=== PATIENT | male | born 1960 | race Two or more races ===

== ENCOUNTER 2019-03-31 03:39 | Inpatient (IN) | payer MEDICARE, OTHER ==
[~2019-03-31] VITALS: Ht 172.7 cm; Wt 126.6 kg
[2019-03-31 05:25] VITALS: BP 198/133
[2019-03-31 07:10] VITALS: BP 152/92
[2019-03-31] MEDS ORDERED: ERGOCALCIFEROL (VITAMIN D2) 50,000 UNIT CAPSULE. PO SCH (09:00)
--- NOTE | 2019-03-31 09:26 | HP ---
ADMIT DATE: 03/31/2019 HISTORY OF PRESENT ILLNESS: The patient is a 58-year-old male patient who presented to the Emergency Room of [facility] with complaints of double vision, that side felt similar to what he has had when he has had previous TIA, started about 2 hours prior to arrival to the Emergency Room. He did complain of headache. He also complained that he feels that the periphery of his left eye vision that he has some form of what he describes as an oscillating, although he has hard time giving a precise description of what he sees there. He denied any tingling or numbness. Denied any localized weakness. Denied any nausea or vomiting. He stated that his symptoms got better when he stood up, but they seem to come back. Denied any fall or trauma. In fact, by the time I saw him in the [facility], his symptoms have largely subsided. He is known to have atrial fibrillation for which he is on Coumadin. He was evaluated in the Emergency Room and apparently by the time he was seen in the Emergency Room, his symptoms have subsided and therefore he has had CT scan of the head, which showed that the ventricular systems are prominent, but symmetric consistent with some generalized cerebral atrophy. No midline shift is seen. There is no evidence of intracranial hemorrhage. There is chronic infarct in the right occipital lobe. No acute infarct, mass or edema is seen. No abnormalities are seen at the orbits. The paranasal sinuses are clear and the right mastoid cells are clear. There is some chronic opacification of the left mastoid air cells, which may reflect some mastoiditis. His EKG showed that he has irregularly irregular rhythm consistent with atrial fibrillation and chest x-ray showed the heart size is normal, mediastinum is unremarkable. Lung garcia are clear. No acute bony abnormalities are seen. His lab work was essentially unremarkable. His prothrombin time was 25, INR of 2.4, which is well within therapeutic range and therefore, the patient was transferred to [facility] to consult the neurologist as well and order an MRI. PAST MEDICAL HISTORY: Significant for hypertension, hyperlipidemia, chronic kidney disease, type 2 diabetes mellitus, multiple cerebrovascular accidents. He is known to have benign prostatic hypertrophy and chronic venous stasis of both lower extremities as well as gout. PAST SURGICAL HISTORY: Significant for hernia repair. ALLERGIES: He has no known drug allergies. FAMILY HISTORY: He has 3 sisters, the older one has of end-stage renal disease in her 60s. The other two sisters include one younger and one older are seemingly healthy. His father in his 70s because of CVA and mother in her 70s. SOCIAL HISTORY: He is , has 2 daughters. He currently lives with 2 friends. He is an ex-smoker, quit 4 years ago. He used to smoke a pack a day and smoked for almost 30 years, who is also a heavy alcohol drinker described himself as functional alcoholic, quit also about 4 years ago after he had first TIA. He does not use any drugs. He used to work for [employer]. He was discharged from the [employer] after 6 years of service. REVIEW OF SYSTEMS: The patient denied any blurring of vision, but did complain of diplopia. He has no history of glaucoma or macular degeneration. Denied any earache, tinnitus or sensorineural deafness. Denied any nosebleeds, stuffy nose or postnasal drip. Denied any sore throat, sore tongue, toothache, hoarseness of voice or difficulty swallowing. Denied any nausea, vomiting, diarrhea or constipation. Denied any hematemesis, melena or hematochezia. Denied any dysuria, frequency or hematuria. Denied any chest pain, shortness of breath, orthopnea, paroxysmal nocturnal dyspnea. Denied any cough, phlegm or hemoptysis. PHYSICAL EXAMINATION: GENERAL: On arrival to the Emergency Room, he apparently looked well and was clearly in no apparent respiratory distress. No pallor, jaundice, cyanosis or thyromegaly. No jugular venous distention. No limb edema. VITAL SIGNS: His heart rate was 96, blood pressure was 180/105, his temperature was 98, respiratory rate was 24 and oxygen saturation was 96%. HEAD, EYES, EARS, NOSE AND THROAT: Showed normocephalic, atraumatic. NECK: Supple. HEART: Showed normal first and second heart sounds. No gallop or murmur. CHEST: Clear to auscultation. No crepitation or rhonchi. ABDOMEN: Distended, soft, nontender. NEUROLOGIC: He was awake, alert, responding appropriately. All cranial nerves intact. EXTREMITIES: He moves extremities without difficulty, although he is mostly bedbound. By the time I saw him, he has had no more diplopia, although he continued to describe what seems to be oscillopsia on the extremes outer aspect of the left eye field. LABORATORY DATA: Showed a white cell count 7700, hemoglobin 13, hematocrit 41, MCV 87, and platelet count 235,000 with normal manual differential. Serum sodium 142, potassium 4.3, chloride 107, bicarbonate 27, anion gap of 8, BUN 35, creatinine 2.7, estimated GFR was 24 mL per minute, glucose was 195, calcium was 8.4, magnesium 2. Total bilirubin, AST, ALT, alkaline phosphatase were normal. Beta natriuretic peptide was 3512, total protein was 8.1 and albumin was 3.3. His prothrombin time was 25.1, INR of 2.4 and aPTT was 36. Urinalysis was essentially unremarkable. Toxic screen was negative. His CT scan showed a chronic infarct in the right occipital lobe with generalized cerebral atrophy, no acute intracranial abnormalities seen, chronic opacification of the left mastoid air cells. His chest x-ray showed the heart size is normal, mediastinum is unremarkable. Lung garcia are clear. No acute bony abnormalities are seen. PLAN: My plan is to continue all his medication and consult the Neurology and arrange for an MRI of the brain. MINGO GENAO MD DR: XAVIER/sushma JOB#: [id number] / [id number]
[2019-03-31] MEDS: MAGNESIUM OXIDE 400 MG TABLET PO SCH ×2 (10:08→21:52)
[2019-03-31] MEDS: OMEGA-3 FATTY ACIDS/FISH OIL 1,000 MG CAPSULE. PO SCH (10:08)
[2019-03-31] MEDS: EZETIMIBE 10 MG TABLET. PO SCH (10:09)
[2019-03-31] MEDS: LISINOPRIL 10 MG TABLET PO SCH (10:09)
[2019-03-31] MEDS: CARVEDILOL 12.5 MG TABLET. PO SCH ×2 (10:10→17:28)
[2019-03-31] MEDS: FUROSEMIDE 40 MG TABLET. PO SCH (10:10)
[2019-03-31 11:15] VITALS: BP 148/100
--- NOTE | 2019-03-31 12:22 | RAD ---
Bilateral Duplex Carotid Ultrasound, 03/31/10 Comparison: None available Indication: TIA, Bilateral leg weakness. Procedure: Real-time, grayscale, color flow, duplex Doppler and spectral analysis off the carotid arteries is performed and images are obtained . Vertebral arteries were also imaged FINDINGS: Study somewhat limited due to patient's large body habitus and larger neck limiting evaluation of portions of the distal right internal carotid artery. Mild atheromatous calcifications of distal common carotid arteries and carotid bulbs. Peak systolic velocities in cm/sec: Right side: CCA: 56 ICA: 40 ICA (End Diastolic Velocity): 15 ICA/CCA Ratio: 1.05 Left side: CCA: 80 ICA: 57 ICA (End Diastolic Velocity): 22 ICA/CCA Ratio: 1.14 Vertebral arteries are antegrade. IMPRESSION: 1. No hemodynamically significant stenosis of internal carotid arteries. PQRS Compliance Statement - Stenosis calculations for CT, MR and conventional angiography are based upon measurement of the distal ICA diameter in accordance with the NASCET methodology. Stenosis calculations for carotid ultrasound studies are derived from validated velocity criteria which are known to correlate with the NASCET methodology. Electronically signed by: Sarah Art MD (03/31/2019 12:18 PM) [facility]
[2019-03-31] MEDS: glipiZIDE 5 MG TABLET PO SCH ×2 (12:49→17:27)
[2019-03-31] MEDS ORDERED: WARF2.5T71 PO ×2 (14:08→14:09)
[2019-03-31] MEDS ORDERED: WARF-31 PO (14:08)
[2019-03-31 15:00] VITALS: BP 172/103
--- NOTE | 2019-03-31 16:07 | PDOC2 ---
NEUROLOGY CONSULT Date of Admission Date of Admission DATE: 03/31/19 TIME: 15:40 Reason for Consult Reason for Consult: IMPRESSION: Diplopia. TIA? Hypertensive urgency, SBP near 200 mmHg. Syncopal spell. HTN. HLD. DM. Old CVA. Obesity. RECOMMENDATIONS/PLAN: Brain MRI w/o contrast. Lab: see orders. ASA daily. Lipitor 40 mg HS. Control BP. Treat medical diseases. Weight reduction. OT/PT. HISTORY OF THE PRESENT ILLNESS: This is a 58-year-old male patient with above medical diseases had symptoms of diplopia that lasted for several minutes. He stated when he tried to stand, he suddenly had blurred vision and diplopia seeing double. He also felt dizziness. His diplopia symptoms lasted for several minutes, but dizziness still exist. No motor or sensory deficits complained. PAST MEDICAL HISTORY: Hypertension, hyperlipidemia, chronic kidney disease, type 2 diabetes mellitus, multiple cerebrovascular accidents, benign prostatic hypertrophy and chronic venous stasis of both lower extremities as well as gout. PAST SURGICAL HISTORY: Hernia repair. ALLERGIES: NKDA. FAMILY HISTORY: He has 3 sisters, the older one has of end-stage renal disease in her 60s. The other two sisters include one younger and one older are seemingly healthy. His father in his 70s because of CVA and mother in her 70s. SOCIAL HISTORY: He is , has 2 daughters. He currently lives with 2 friends. He is an ex-smoker, quit 4 years ago. He used to smoke a pack a day and smoked for almost 30 years, who is also a heavy alcohol drinker described himself as functional alcoholic, quit also about 4 years ago after he had first TIA. He does not use any drugs. He used to work for [employer] He was discharged from the [employer] after 6 years of service. MEDICATIONS: Refer to [facility] REVIEW OF SYSTEMS: Constitutional: Obesity. Head: No traumatic brain or head injury. Skin: No edema, or rash. Ear: No infection. Eyes: No vision loss or color blindness. Nose: No bleeding or purulent discharges. Hearing: Hearing decrease. Neck: No injury. Cardiac: HTN, HLD. Pulmonary: No COPD. GI: No GI ulcer, GI bleeding. Urinary/genital: UTI. Endocrinologic: Diabetes Mellitus, obesity. Skeletomuscular: No muscular atrophy, deformity. Neurological: see HP. Psychiatric: Denies drug use/abuse. Otherwise, not [id number] review of systems. PHYSICAL EXAMINATION: General appearance is in subacute distress. HEENT: Normocephalic and nontraumatic. Eyes, nose, ears, and throat are unremarkable. Neck is supple. No lymphadenopathy. No crepitus. Cardiovascular: S1, S2, regular rate and rhythm. Pulmonary: Clear to auscultation bilaterally. Abdomen: Bowel sounds are positive. Extremities: No rash, lesions, or edema. No restriction of range of motion NEUROLOGICAL EXAMINATION: Alert Oriented to time, place and person. PERRL. EOMI. CN: no focal findings. Muscle tone: within normal. Muscle strength: 5 DTR: 1 Plantar reflex: Flexor response bilaterally Gait: not examined in bed. Sensory exam: no abnormal findings. No cerebellar signs elicited. F-T-N test fine. Current Medications Current Medications Current Medications Furosemide (Lasix) 40 mg DAILY PO Last administered on 03/31/19 10:10; Start 03/31/19 at 09:00 Atorvastatin Calcium (Lipitor) 40 mg QHS PO ; Start 03/31/19 at 21:00 Fish Oil (Fish Oil) 1,000 mg DAILY PO Last administered on 03/31/19 10:08; Start 03/31/19 at 09:00 Carvedilol (Coreg) 12.5 mg BIDWMEALS PO Last administered on 03/31/19 10:10; Start 03/31/19 at 09:00 Ergocalciferol (Vitamin D2) 50,000 unit WEEKLY PO Last administered on 03/31/19 10:09; Start 03/31/19 at 09:00 EZETIMIBE (Zetia) 10 mg DAILY PO Last administered on 03/31/19 10:09; Start 03/31/19 at 09:00 Magnesium Oxide (Magnesium Oxide) 400 mg BID PO Last administered on 03/31/19 10:08; Start 03/31/19 at 09:00 Lisinopril (Prinivil) 10 mg DAILY PO Last administered on 03/31/19 10:09; Start 03/31/19 at 09:00 Glipizide (Glucotrol) 7.5 mg BIDBFRMEAL PO Last administered on 03/31/19 12:49; Start 03/31/19 at 09:00 Aspirin (Children'S Aspirin) 81 mg DAILYWBKFT PO ; Start 04/01/19 at 08:00 Active Scripts Active Reported Warfarin Sodium 2.5 Mg Tablet 2.5 Mg PO QWE Warfarin Sodium 5 Mg Tablet 5 Mg PO QMONFR Warfarin Sodium 2.5 Mg Tablet 2.5 Mg PO [id number] Allergies Allergies: Allergies Coded Allergies Type Severity Reaction Last Updated Verified No Known Drug Allergies 03/31/19 No ROS Review of System The patient denies any associated fevers, chills, headache, ear pain, rhinorrhea, sore throat, stiff neck, productive cough, chest pain, shortness of breath, back or flank pain, abdominal pain, nausea, vomiting, diarrhea, constipation, dysuria, rash, numbness, weakness, tingling, incontinence, difficulty ambulating, or diaphoresis. Physical Exam Physical Exam General: Well developed, well nourished, no acute distress, well appearing HEENT: Pupils equally round and reactive to light, EOMI, no discharge, normal conjunctiva Neck: Supple, no nuchal rigidity, no JVD, trachea midline, no tenderness Cardiac: RRR, no murmurs, no gallops, no rubs Chest/Lungs: CTAB, no wheeze, no rhonchi, no crackles Abdomen: soft, non-distended, no guarding, no peritoneal signs, non-tender Back: No tenderness Extremities: no edema, pulses intact, non-tender,capillary refill <3 sec bilateral upper and lower extremities, Neuro: Alert and oriented x 4, no focal deficits, normal speech Vitals Vitals: Vital Signs Date Time Temp Pulse Resp B/P (MAP) Pulse Ox O2 Delivery O2 Flow Rate FiO2 03/31/19 11:15 97.6 75 20 148/100 (116) 93 Room Air 97.6 Labs Labs Laboratory Tests Test 03/31/19 13:30 Thyroid Stimulating Hormone (TSH) 2.919 uIU/mL (0.358-3.74) Laboratory Tests Test 03/31/19 13:30 Thyroid Stimulating Hormone (TSH) 2.919 uIU/mL (0.358-3.74) MARCO RAMOS MD Mar 31, 2019 16:07
[2019-03-31 19:06] VITALS: BP 150/108
[2019-03-31 20:35] LABS: BARBITURATES NEG (NEG); BENZODIAZEPINES NEG (NEG); CANNABINOIDS NEG (NEG); COCAINE NEG (NEG); METHADONE NEG (NEG); OPIATES NEG (NEG); PHENCYCLIDINE NEG (NEG)
[2019-03-31 20:36] LABS: AMPHETAMINE/METHAMPHETAMINE NEG (NEG)
[2019-03-31] MEDS: ATORVASTATIN CALCIUM 40 MG TABLET. PO SCH (21:52)
[2019-03-31 23:12] VITALS: BP 148/112
[2019-04-01 03:32] VITALS: BP 159/107
[2019-04-01 05:43] LABS: CALCIUM 8.4 mg/dL (8.5-10.1); CREATININE 2.6 mg/dL (0.7-1.3); GFR 25.4; POTASSIUM 4.4 mmol/L (3.5-5.1)
[2019-04-01 05:44] LABS: CHOLESTEROL/HDL RATIO 3.7
[2019-04-01 07:00] VITALS: BP 144/85
--- NOTE | 2019-04-01 09:40 | PN ---
DATE: 04/01/2019 SUBJECTIVE: The patient is sitting on the edge of the bed, eating his breakfast comfortably, in no apparent distress. He denied any further episodes of diplopia. Denied any dizziness or lightheadedness. Denied any tingling, numbness, or weakness. He apparently was seen by Dr. Mcnally who ordered an MRI of the brain and his bilateral carotid Doppler ultrasound showed no evidence of any hemodynamic significant stenosis. When I examined him, he looked well and was clearly in no apparent respiratory distress. No pallor, jaundice, or cyanosis from thyromegaly. No jugular venous distention. No edema. OBJECTIVE: VITAL SIGNS: His heart rate was 71, blood pressure was 144/85, temperature was 97.5, respiratory rate was 18 and oxygen saturation was 93%. HEAD, EYES, EARS, NOSE, AND THROAT: Normocephalic, atraumatic. NECK: Supple. HEART: Showed normal first and second heart sounds. No gallop, rub, or murmur. LUNGS: Clear to auscultation with occasional rhonchi. ABDOMEN: Distended, soft, nontender. NEUROLOGIC: He was awake, alert, responding appropriately. All cranial nerves intact. He moves extremities without difficulty. Ambulates without assistance or assistive devices. His intake and output were incomplete recorded. LABORATORY DATA: Showed a serum sodium 142, potassium 4.4, chloride 108, bicarbonate 25, anion gap of 9, BUN 35, creatinine 2.6, estimated GFR was 25 mL per minute. His glucose was 182. Calcium was 8.4. Serum triglycerides 124, total cholesterol was 110, LDL was 55, VLDL was 25, HDL was 30 and the ratio was 3.7. His TSH was 2.919. His toxicology screen was negative. ASSESSMENT: New-onset diplopia due to transient ischemic attack versus hypertensive urgency. Other medical problems include hypertension, hyperlipidemia, type 2 diabetes, morbid obesity and old cerebrovascular accident. PLAN: To await the results of the MRI of the brain without contrast. Continue with aspirin, Lipitor. Continue with PT, OT. JOSE D GUZMAN MD DR: МАРИНА/sushma JOB#: [id number] / [id number]
[2019-04-01] MEDS: EZETIMIBE 10 MG TABLET. PO SCH (09:52)
[2019-04-01] MEDS: CARVEDILOL 12.5 MG TABLET. PO SCH ×2 (09:52→16:33)
[2019-04-01] MEDS: MAGNESIUM OXIDE 400 MG TABLET PO SCH ×2 (09:52→20:50)
[2019-04-01] MEDS: OMEGA-3 FATTY ACIDS/FISH OIL 1,000 MG CAPSULE. PO SCH (09:52)
[2019-04-01] MEDS: LISINOPRIL 10 MG TABLET PO SCH (09:53)
[2019-04-01] MEDS: ASPIRIN CHEWABLE 81 MG TABLET. PO SCH (09:53)
[2019-04-01] MEDS: glipiZIDE 5 MG TABLET PO SCH ×2 (09:55→16:35)
[2019-04-01] MEDS: FUROSEMIDE 40 MG TABLET. PO SCH (09:55)
[2019-04-01 11:00] VITALS: BP 152/94
--- NOTE | 2019-04-01 14:20 | PDOC ---
PROGRESS NOTES Assessment Assessment Diplopia. TIA? Hypertensive urgency, SBP near 200 mmHg. Syncopal spell. HTN. HLD. DM. Old CVA. Obesity. RECOMMENDATIONS/PLAN: Brain MRI w/o contrast. ASA daily. Lipitor 40 mg HS. Control BP. Treat medical diseases. Weight reduction. OT/PT. HISTORY OF THE PRESENT ILLNESS: This is a 58-year-old male patient with above medical diseases had symptoms of diplopia that lasted for several minutes. He stated when he tried to stand, he suddenly had blurred vision and diplopia seeing double. He also felt dizziness. His diplopia symptoms lasted for several minutes, but dizziness still exist. No motor or sensory deficits complained. PAST MEDICAL HISTORY: Hypertension, hyperlipidemia, chronic kidney disease, type 2 diabetes mellitus, multiple cerebrovascular accidents, benign prostatic hypertrophy and chronic venous stasis of both lower extremities as well as gout. PAST SURGICAL HISTORY: Hernia repair. ALLERGIES: NKDA. FAMILY HISTORY: He has 3 sisters, the older one has of end-stage renal disease in her 60s. The other two sisters include one younger and one older are seemingly healthy. His father in his 70s because of CVA and mother in her 70s. SOCIAL HISTORY: He is , has 2 daughters. He currently lives with 2 friends. He is an ex-smoker, quit 4 years ago. He used to smoke a pack a day and smoked for almost 30 years, who is also a heavy alcohol drinker described himself as functional alcoholic, quit also about 4 years ago after he had first TIA. He does not use any drugs. He used to work for [employer]. He was discharged from the [employer] after 6 years of service. MEDICATIONS: Refer to [facility] REVIEW OF SYSTEMS: Constitutional: Obesity. Head: No traumatic brain or head injury. Skin: No edema, or rash. Ear: No infection. Eyes: No vision loss or color blindness. Nose: No bleeding or purulent discharges. Hearing: Hearing decrease. Neck: No injury. Cardiac: HTN, HLD. Pulmonary: No COPD. GI: No GI ulcer, GI bleeding. Urinary/genital: UTI. Endocrinologic: Diabetes Mellitus, obesity. Skeletomuscular: No muscular atrophy, deformity. Neurological: see HP. Psychiatric: Denies drug use/abuse. Otherwise, not [id number] review of systems. PHYSICAL EXAMINATION: General appearance is in subacute distress. HEENT: Normocephalic and nontraumatic. Eyes, nose, ears, and throat are unremarkable. Neck is supple. No lymphadenopathy. No crepitus. Cardiovascular: S1, S2, regular rate and rhythm. Pulmonary: Clear to auscultation bilaterally. Abdomen: Bowel sounds are positive. Extremities: Chronic skin changes noted in left dorsal aspect of the foot. No restriction of range of motion NEUROLOGICAL EXAMINATION: Alert Oriented to time, place and person. PERRL. EOMI. CN: no focal findings. Muscle tone: within normal. Muscle strength: 5- DTR: 1 Plantar reflex: Flexor response bilaterally Gait: not examined in bed. Sensory exam: no abnormal findings. No cerebellar signs elicited. F-T-N test fine. Objective Objective Vital Signs Date Time Temp Pulse Resp B/P (MAP) Pulse Ox O2 Delivery O2 Flow Rate FiO2 04/01/19 11:00 98.0 79 16 152/94 (113) 95 Room Air 98.0 Intake and Output 04/01/19 07:00 Intake Total 1000 ml Output Total 575 ml Balance 425 ml Intake Oral 1000 ml Output Urine Total 575 ml # Voids 1 Vitals Signs Vitals VS - Last 72 Hours, by Label Date Time Temp Pulse Resp B/P (MAP) Pulse Ox O2 Delivery O2 Flow Rate FiO2 04/01/19 11:00 98.0 79 16 152/94 (113) 95 Room Air 98.0 04/01/19 09:53 71 144/85 04/01/19 09:52 71 144/85 04/01/19 09:50 Room Air 04/01/19 07:00 97.5 71 18 144/85 (104) 93 Room Air 97.5 04/01/19 03:32 98.2 68 20 159/107 (124) 96 Room Air 98.2 03/31/19 23:12 97.5 67 20 148/112 (124) 96 Room Air 97.5 03/31/19 20:25 Room Air 03/31/19 19:06 98.1 72 18 150/108 (122) 96 Room Air 98.1 03/31/19 17:28 70 172/103 03/31/19 15:00 97.9 70 18 172/103 (126) 94 Room Air 97.9 03/31/19 11:15 97.6 75 20 148/100 (116) 93 Room Air 97.6 03/31/19 10:10 76 152/92 03/31/19 10:09 76 152/92 03/31/19 08:00 Room Air 03/31/19 07:10 97.9 76 18 152/92 (112) 96 Room Air 97.9 Laboratory Laboratory Laboratory Tests Test 03/31/19 19:50 03/31/19 20:59 04/01/19 04:00 04/01/19 08:12 Urine Opiates Screen Neg (NEG) Urine Methadone Screen Neg (NEG) Urine Barbiturates Neg (NEG) Urine Phencyclidine Screen Neg (NEG) Urine Amphetamine/Methamphetamine Neg (NEG) Urine Benzodiazepines Screen Neg (NEG) Urine Cocaine Screen Neg (NEG) Urine Cannabinoids Screen Neg (NEG) Urine Ethyl Alcohol Neg (NEG) Glucose (Fingerstick) 192 mg/dL (70-99) 134 mg/dL (70-99) Sodium Level 142 mmol/L (136-145) Potassium Level 4.4 mmol/L (3.5-5.1) Chloride Level 108 mmol/L (98-107) Carbon Dioxide Level 25 mmol/L (21-32) Anion Gap 9 (6-14) Blood Urea Nitrogen 35 mg/dL (8-26) Creatinine 2.6 mg/dL (0.7-1.3) Estimated GFR (Cockcroft-Gault) 25.4 Glucose Level 182 mg/dL (70-99) Calcium Level 8.4 mg/dL (8.5-10.1) Triglycerides Level 124 mg/dL (0-150) Cholesterol Level 110 mg/dL (0-200) LDL Cholesterol, Calculated 55 mg/dL (0-100) VLDL Cholesterol, Calculated 25 mg/dL (0-40) Non-HDL Cholesterol Calculated 80 mg/dL (0-129) HDL Cholesterol 30 mg/dL (40-60) Cholesterol/HDL Ratio 3.7 Test 04/01/19 11:50 Glucose (Fingerstick) 189 mg/dL (70-99) Medication Medications Current Medications Aspirin (Children'S Aspirin) 81 mg DAILYWBKFT PO Last administered on 04/01/19at 09:53; Start 04/01/19 at 08:00 Atorvastatin Calcium (Lipitor) 40 mg QHS PO Last administered on 03/31/19at 21:52; Start 03/31/19 at 21:00 Warfarin Sodium (Coumadin Per Physician) 1 each PRN DAILY PRN MC SEE COMMENTS Last administered on 04/01/19at 13:04; Start 04/01/19 at 13:00 Warfarin Sodium (Coumadin) 2.5 mg QWE PO ; Start 04/04/19 at 16:00; Status UNV Warfarin Sodium (Coumadin) 2.5 mg SuTuWeThSa PO ; Start 04/01/19 at 16:00 Warfarin Sodium (Coumadin) 5 mg QMONFR PO ; Start 04/02/19 at 16:00 Comment Review of Relevant I have reviewed the following items santana (where applicable) has been applied. MARCO RAMOS MD Apr 01, 2019 14:20
[2019-04-01 15:00] VITALS: BP 181/110
[2019-04-01] MEDS: WARFARIN 2.5 MG TABLET. PO SCH (16:33)
[2019-04-01 19:10] VITALS: BP 175/109
[2019-04-01] MEDS: ATORVASTATIN CALCIUM 40 MG TABLET. PO SCH (20:50)
[2019-04-01 23:47] VITALS: BP 162/104
[2019-04-02 03:40] VITALS: BP 163/121
[2019-04-02 06:23] LABS: PROTHROMBIN TIME PATIENT 26.4 SEC (11.7-14.0)
[2019-04-02 07:00] VITALS: BP 157/115
--- NOTE | 2019-04-02 09:23 | PN ---
DATE: 04/01/2019 SUBJECTIVE: The patient is sitting on the edge of the bed, eating his breakfast comfortably, in no apparent distress. He denied any further episodes of diplopia. Denied any dizziness or lightheadedness. Denied any tingling, numbness, or weakness. He apparently was seen by Dr. Mcnally who ordered an MRI of the brain and his bilateral carotid Doppler ultrasound showed no evidence of any hemodynamic significant stenosis. When I examined him, he looked well and was clearly in no apparent respiratory distress. No pallor, jaundice, or cyanosis from thyromegaly. No jugular venous distention. No edema. OBJECTIVE: VITAL SIGNS: His heart rate was 71, blood pressure was 144/85, temperature was 97.5, respiratory rate was 18 and oxygen saturation was 93%. HEAD, EYES, EARS, NOSE, AND THROAT: Normocephalic, atraumatic. NECK: Supple. HEART: Showed normal first and second heart sounds. No gallop, rub, or murmur. LUNGS: Clear to auscultation with occasional rhonchi. ABDOMEN: Distended, soft, nontender. NEUROLOGIC: He was awake, alert, responding appropriately. All cranial nerves intact. He moves extremities without difficulty. Ambulates without assistance or assistive devices. His intake and output were incomplete recorded. LABORATORY DATA: Showed a serum sodium 142, potassium 4.4, chloride 108, bicarbonate 25, anion gap of 9, BUN 35, creatinine 2.6, estimated GFR was 25 mL per minute. His glucose was 182. Calcium was 8.4. Serum triglycerides 124, total cholesterol was 110, LDL was 55, VLDL was 25, HDL was 30 and the ratio was 3.7. His TSH was 2.919. His toxicology screen was negative. ASSESSMENT: New-onset diplopia due to transient ischemic attack versus hypertensive urgency. Other medical problems include hypertension, hyperlipidemia, type 2 diabetes, morbid obesity and old cerebrovascular accident. PLAN: To await the results of the MRI of the brain without contrast. Continue with aspirin, Lipitor. Continue with PT, OT. MINGO GENAO MD DR: XAVIER/sushma JOB#: [id number] / [id number]
[2019-04-02] MEDS: EZETIMIBE 10 MG TABLET. PO SCH (10:52)
[2019-04-02] MEDS: OMEGA-3 FATTY ACIDS/FISH OIL 1,000 MG CAPSULE. PO SCH (10:52)
[2019-04-02] MEDS: glipiZIDE 5 MG TABLET PO SCH ×2 (10:53→16:48)
[2019-04-02] MEDS: MAGNESIUM OXIDE 400 MG TABLET PO SCH ×2 (10:53→21:22)
[2019-04-02] MEDS: LISINOPRIL 10 MG TABLET PO SCH (10:53)
[2019-04-02] MEDS: ASPIRIN CHEWABLE 81 MG TABLET. PO SCH (10:53)
[2019-04-02] MEDS: FUROSEMIDE 40 MG TABLET. PO SCH (10:54)
[2019-04-02] MEDS: CARVEDILOL 12.5 MG TABLET. PO SCH ×2 (10:54→16:47)
[2019-04-02 11:00] VITALS: BP 171/116
--- NOTE | 2019-04-02 11:05 | RAD ---
BRAIN W/O CONTRAST History: Diplopia Technique: Multiplanar, multi sequential MR imaging was performed of the brain without contrast. Comparison: CT March 31, 2019 Findings: No acute infarct. No intracranial hemorrhage. No mass effect. No hydrocephalus. Chronic right [employer] territory infarct. Chronic small right cerebellar lacunar infarcts. Chronic right thalamic lacunar infarct. Moderate brain parenchymal volume loss. Mild ventriculomegaly likely related to central brain parenchymal volume loss. Imaged orbits are unremarkable. Paranasal sinuses are clear. Bilateral mastoid effusions. Impression: 1. No acute intracranial abnormality. 2. Chronic right [employer] territory infarct. 3. Small chronic right thalamic and right cerebellar lacunar infarcts. 4. Moderate brain parenchymal volume loss for patient's age. 5. Bilateral mastoid effusions. Electronically signed by: Richard Buck DO (04/02/2019 11:02 AM) [facility]
--- NOTE | 2019-04-02 11:31 | PN ---
DATE: 04/02/2019 SUBJECTIVE: The patient is sitting at the edge of the bed comfortably in no apparent distress, has had his MRI done this morning; however, his blood pressure continued to be extremely high and poorly controlled. PHYSICAL EXAMINATION: GENERAL: When I examined him this morning, he looked somewhat pale, no jaundice, cyanosis or thyromegaly. No jugular venous distention. No limb edema. VITAL SIGNS: His heart rate was 74, blood pressure 157/115, temperature was 97.7, respiratory rate was 19 and oxygen saturation was 95%. HEAD, EYES, EARS, NOSE AND THROAT: Showed normocephalic, atraumatic. NECK: Supple. HEART: Showed normal first and second heart sounds. No gallop or murmur. CHEST: Clear to auscultation. No crepitation or rhonchi. ABDOMEN: Distended, soft, nontender. No guarding or rigidity. No organomegaly. All hernial orifice intact. Bowel sounds normal. NEUROLOGIC: He was awake, alert, responding appropriately. All cranial nerves intact. He moves extremities without difficulty. LABORATORY DATA: As of yesterday showed a BUN of 35, creatinine 2.6. His prothrombin time was 26.4, INR of 2.5. His MRI this morning showed that the patient has no acute infarct, no intracranial hemorrhage, no mass effect or hydrocephalus. Has chronic right posterior cerebral artery territory infarct, chronic small right cerebellar lacunar infarct, chronic right thalamic lacunar infarct, moderate brain parenchymal volume loss, mild ventriculomegaly, likely related to central brain parenchymal volume loss. Imaged orbits are unremarkable. Paranasal sinuses are clear. Bilateral mastoid effusion. PLAN: To obviously continue on all his medications. I did adjust his lisinopril, decrease to 20 mg once a day as well as carvedilol. I will repeat all his lab works tomorrow and if the blood pressures were much better controlled, we will discharge him home tomorrow. MINGO GENAO MD DR: XAVIER/sushma JOB#: [id number] / [id number]
[2019-04-02 11:32] LABS: HEMATOCRIT 39.1 % (39.0-53.0); HEMOGLOBIN 12.9 g/dL (13.0-17.5); RED BLOOD COUNT 4.51 x10^6/uL (4.30-5.70); RED CELL DISTRIBUTION WIDTH 15.6 % (11.5-14.5)
[2019-04-02 11:44] LABS: ALBUMIN 3.2 g/dL (3.4-5.0); ALBUMIN/GLOBULIN RATIO 0.8 (1.0-1.7); CALCIUM 8.2 mg/dL (8.5-10.1); CREATININE 2.5 mg/dL (0.7-1.3); GFR 26.6; POTASSIUM 4.2 mmol/L (3.5-5.1); TOTAL BILIRUBIN 0.5 mg/dL (0.2-1.0); TOTAL PROTEIN 7.3 g/dL (6.4-8.2)
[2019-04-02] MEDS ORDERED: LISINOPRIL 10 MG TABLET PO ONE (12:00)
--- NOTE | 2019-04-02 14:33 | PDOC ---
PROGRESS NOTES Assessment Assessment Diplopia on 03/31/19. Syncopal spell likely. Hypertensive urgency, SBP near 200 mmHg. AFib. HTN. HLD. DM. Old small right thalamic infract. Old right cerebellar lacunar infarct. Obesity. No evidence of acute CVA this time. RECOMMENDATIONS/PLAN: Resumed Coumadin per PCP. ASA 81 mg daily or w/o ASA is fine. Lipitor 40 mg HS. Control BP. Treat medical diseases. Weight reduction. OT/PT. HISTORY OF THE PRESENT ILLNESS: This is a 58-year-old male patient with above medical diseases had symptoms of diplopia that lasted for several minutes. He stated when he tried to stand, he suddenly had blurred vision and diplopia seeing double. He also felt dizziness. His diplopia symptoms lasted for several minutes, but dizziness still exist. No motor or sensory deficits complained. PAST MEDICAL HISTORY: Hypertension, hyperlipidemia, chronic kidney disease, type 2 diabetes mellitus, multiple cerebrovascular accidents, benign prostatic hypertrophy and chronic venous stasis of both lower extremities as well as gout. PAST SURGICAL HISTORY: Hernia repair. ALLERGIES: NKDA. FAMILY HISTORY: He has 3 sisters, the older one has of end-stage renal disease in her 60s. The other two sisters include one younger and one older are seemingly healthy. His father in his 70s because of CVA and mother in her 70s. SOCIAL HISTORY: He is , has 2 daughters. He currently lives with 2 friends. He is an ex-smoker, quit 4 years ago. He used to smoke a pack a day and smoked for almost 30 years, who is also a heavy alcohol drinker described himself as functional alcoholic, quit also about 4 years ago after he had first TIA. He does not use any drugs. He used to work for [employer]. He was discharged from the [employer] after 6 years of service. MEDICATIONS: Refer to [facility] REVIEW OF SYSTEMS: Constitutional: Obesity. Head: No traumatic brain or head injury. Skin: No edema, or rash. Ear: No infection. Eyes: No vision loss or color blindness. Nose: No bleeding or purulent discharges. Hearing: Hearing decrease. Neck: No injury. Cardiac: HTN, HLD. Pulmonary: No COPD. GI: No GI ulcer, GI bleeding. Urinary/genital: UTI. Endocrinologic: Diabetes Mellitus, obesity. Skeletomuscular: No muscular atrophy, deformity. Neurological: see HP. Psychiatric: Denies drug use/abuse. Otherwise, not [id number] review of systems. PHYSICAL EXAMINATION: General appearance is in subacute distress. HEENT: Normocephalic and nontraumatic. Eyes, nose, ears, and throat are unremarkable. Neck is supple. No lymphadenopathy. No crepitus. Cardiovascular: S1, S2, regular rate and rhythm. Pulmonary: Clear to auscultation bilaterally. Abdomen: Bowel sounds are positive. Extremities: No rash, lesions, or edema. No restriction of range of motion NEUROLOGICAL EXAMINATION: Alert Oriented to time, place and person. PERRL. EOMI. CN: no focal findings. Muscle tone: within normal. Muscle strength: 5 DTR: 1 Plantar reflex: Flexor response bilaterally Gait: Able to walk. Sensory exam: no abnormal findings. No cerebellar signs elicited. F-T-N test fine. Objective Objective Vital Signs Date Time Temp Pulse Resp B/P (MAP) Pulse Ox O2 Delivery O2 Flow Rate FiO2 04/02/19 13:52 70 171/116 04/02/19 11:00 98.3 21 98 Room Air 98.3 Intake and Output 04/02/19 07:00 Intake Total 900 ml Balance 900 ml Intake Oral 900 ml # Voids 1 Vitals Signs Vitals VS - Last 72 Hours, by Label Date Time Temp Pulse Resp B/P (MAP) Pulse Ox O2 Delivery O2 Flow Rate FiO2 04/02/19 13:52 70 171/116 04/02/19 11:00 98.3 70 21 171/116 (134) 98 Room Air 98.3 04/02/19 10:54 74 157/115 04/02/19 10:53 74 157/115 04/02/19 07:00 97.7 74 19 157/115 (129) 95 Room Air 97.7 04/02/19 03:40 98.5 75 20 163/121 (135) 97 Room Air 98.5 04/01/19 23:47 98.7 73 20 162/104 (123) 95 Room Air 98.7 04/01/19 20:10 Room Air 04/01/19 19:10 98.4 64 18 175/109 (131) 97 Room Air 98.4 04/01/19 16:33 73 166/112 04/01/19 15:00 98.0 65 16 181/110 (133) 95 Room Air 98.0 04/01/19 11:00 98.0 79 16 152/94 (113) 95 Room Air 98.0 04/01/19 09:53 71 144/85 04/01/19 09:52 71 144/85 04/01/19 09:50 Room Air 04/01/19 07:00 97.5 71 18 144/85 (104) 93 Room Air 97.5 Laboratory Laboratory Laboratory Tests Test 04/01/19 16:51 04/01/19 21:48 04/02/19 05:20 04/02/19 07:29 Glucose (Fingerstick) 145 mg/dL (70-99) 242 mg/dL (70-99) 138 mg/dL (70-99) White Blood Count 8.0 x10^3/uL (4.0-11.0) Red Blood Count 4.51 x10^6/uL (4.30-5.70) Hemoglobin 12.9 g/dL (13.0-17.5) Hematocrit 39.1 % (39.0-53.0) Mean Corpuscular Volume 87 fL (79-100) Mean Corpuscular Hemoglobin 29 pg (25-35) Mean Corpuscular Hemoglobin Concent 33 g/dL (31-37) Red Cell Distribution Width 15.6 % (11.5-14.5) Platelet Count 225 x10^3/uL (140-400) Prothrombin Time 26.4 SEC (11.7-14.0) Prothromb Time International Ratio 2.5 (0.8-1.1) Sodium Level 145 mmol/L (136-145) Potassium Level 4.2 mmol/L (3.5-5.1) Chloride Level 108 mmol/L (98-107) Carbon Dioxide Level 27 mmol/L (21-32) Anion Gap 10 (6-14) Blood Urea Nitrogen 31 mg/dL (8-26) Creatinine 2.5 mg/dL (0.7-1.3) Estimated GFR (Cockcroft-Gault) 26.6 BUN/Creatinine Ratio 12 (6-20) Glucose Level 144 mg/dL (70-99) Calcium Level 8.2 mg/dL (8.5-10.1) Total Bilirubin 0.5 mg/dL (0.2-1.0) Aspartate Amino Transf (AST/SGOT) 13 U/L (15-37) Alanine Aminotransferase (ALT/SGPT) 20 U/L (16-63) Alkaline Phosphatase 69 U/L (46-116) Total Protein 7.3 g/dL (6.4-8.2) Albumin 3.2 g/dL (3.4-5.0) Albumin/Globulin Ratio 0.8 (1.0-1.7) Test 04/02/19 11:40 Glucose (Fingerstick) 208 mg/dL (70-99) Medication Medications Current Medications Carvedilol (Coreg) 25 mg BIDWMEALS PO ; Start 04/02/19 at 17:00 Lisinopril (Prinivil) 10 mg 1X ONCE PO Last administered on 04/02/19at 13:52; Start 04/02/19 at 12:00; Stop 04/02/19 at 12:01; Status DC Lisinopril (Prinivil) 20 mg DAILY PO ; Start 04/03/19 at 09:00 Warfarin Sodium (Coumadin) 2.5 mg QWE PO ; Start 04/04/19 at 16:00; Status UNV Warfarin Sodium (Coumadin) 2.5 mg SuTuWeThSa PO Last administered on 04/01/19at 16:33; Start 04/01/19 at 16:00 Warfarin Sodium (Coumadin) 5 mg QMONFR PO ; Start 04/02/19 at 16:00 Comment Review of Relevant I have reviewed the following items santana (where applicable) has been applied. MARCO RAMOS MD Apr 02, 2019 14:33
[2019-04-02 15:00] VITALS: BP 138/105
--- NOTE | 2019-04-02 15:19 | NUR ---
Wound Care Wound care consult for BLE wounds. Pt has dry cracked callous to left dorsal foot from wearing sandals with scabs present. No open areas noted. BLE are dark purple and shiny. No other wounds noted. WC will continue to follow for possible changes.
[2019-04-02] MEDS ORDERED: WARFARIN 5 MG TABLET. PO SCH (16:00)
[2019-04-02] MEDS: WARFARIN 2.5 MG TABLET. PO SCH (16:48)
[2019-04-02] MEDS: MINERAL OIL/PETROLATUM TOPICAL CREAM 113GM JAR. TP SCH (16:48)
[2019-04-02 19:42] VITALS: BP 148/114
[2019-04-02] MEDS: ATORVASTATIN CALCIUM 40 MG TABLET. PO SCH (21:22)
[2019-04-02 23:50] VITALS: BP 158/101
[2019-04-03 03:33] VITALS: BP 143/90
[2019-04-03 04:46] LABS: PROTHROMBIN TIME PATIENT 22.6 SEC (11.7-14.0)
[2019-04-03 07:00] VITALS: BP 175/113
[2019-04-03] MEDS: glipiZIDE 5 MG TABLET PO SCH (07:30)
--- NOTE | 2019-04-03 07:58 | NUR ---
SW following pt for dc planning. Chart reviewed. Pt is from home and does not have PT/OT needs. SW will be available as needed.
[2019-04-03] MEDS: ASPIRIN CHEWABLE 81 MG TABLET. PO SCH (08:00)
[2019-04-03] MEDS: CARVEDILOL 12.5 MG TABLET. PO SCH (08:00)
[2019-04-03] MEDS: FUROSEMIDE 40 MG TABLET. PO SCH (09:00)
[2019-04-03] MEDS: OMEGA-3 FATTY ACIDS/FISH OIL 1,000 MG CAPSULE. PO SCH (09:00)
[2019-04-03] MEDS ORDERED: LISINOPRIL 20 MG TABLET PO SCH (09:00)
[2019-04-03] MEDS: MINERAL OIL/PETROLATUM TOPICAL CREAM 113GM JAR. TP SCH (09:00)
[2019-04-03] MEDS: MAGNESIUM OXIDE 400 MG TABLET PO SCH (09:00)
[2019-04-03] MEDS: EZETIMIBE 10 MG TABLET. PO SCH (09:00)
--- NOTE | 2019-04-03 10:47 | DS ---
DATE OF DISCHARGE: 04/03/2019 HOSPITAL COURSE: The patient is a 58-year-old male patient who was admitted initially with diplopia. He was also found to have a high blood pressure and was transferred to [facility] and was seen in consultation by the neurologist. He has had an MRI done, which showed no acute intracranial abnormality; however, he has chronic right posterior cerebral artery territory infarct. He has also small chronic right thalamic and right cerebellar lacunar infarcts and moderate brain parenchymal volume loss, the patient's age and bilateral mastoid effusion. His blood pressure was suboptimally controlled, so I increased his lisinopril to 20 mg once a day and carvedilol 25 mg twice a day, continue his all other medications. When I saw him today, he looked well and was clearly in no apparent respiratory distress and he denied any further episodes of diplopia. Denied any weakness, tingling, or numbness. Denied any dizziness, lightheadedness, or vertigo. PHYSICAL EXAMINATION: GENERAL: When I examined him, he looked pale, not jaundiced, cyanosed or thyromegaly. No jugular venous distension. No lower limb edema. VITAL SIGNS: His heart rate was 80, blood pressure 175/113, temperature was 97.7, respiratory rate was 18 and oxygen saturation was 93% on room air. The rest of clinical examination is stable, has not really changed. His intake was 1500, output was 400. LABORATORY DATA: As of this morning, his prothrombin time was 22.6, INR of 2. His white cell count was 8000, hemoglobin 13, hematocrit 39, MCV 87, and platelet count 225,000. His chemistry showed a serum sodium of 145, potassium 4.2, chloride 108, bicarbonate 27, anion gap of 10, BUN 31, creatinine was 2.5. His estimated GFR was 27 mL per minute, his glucose 144, calcium was 8.2. Total bilirubin, AST, ALT, alkaline phosphatase were normal. Total protein was 7.3, albumin 3.2. DISCHARGE MEDICATIONS: He will be discharged home to continue on lisinopril 20 mg once a day, carvedilol 25 mg twice a day. He is on Coumadin 5 mg on Tuesday, Tuesday and 2.5 mg on Tuesday, Tuesday, Tuesday, and Tuesday. Aspirin 81 mg once a day, atorvastatin 40 mg at bedtime, glipizide 7.5 mg twice a day, magnesium oxide 400 mg twice a day, Zetia 10 mg once a day, vitamin D2 at 50,000 international unit once a week, fish oil 1000 mg daily and furosemide 40 mg once a day. FINAL DISCHARGE DIAGNOSES: 1. Diplopia, resolved. 2. Hypertensive urgency, improved. 3. Atrial fibrillation, rate controlled, well anticoagulated; hypertension; hyperlipidemia; type 2 diabetes mellitus; old small right thalamic infarct; old right cerebellar lacunar infarct; obesity, no evidence of acute cerebrovascular accident at this time. PLAN: To continue with Coumadin, continue with aspirin and continue with Lipitor. MINGO GENAO MD DR: XAVIER/sushma JOB#: [id number] / [id number]
[2019-04-03 11:00] VITALS: BP 158/112
--- NOTE | 2019-04-03 11:00 | NUR ---
Pt was educated, dc iv, and escorted out via wheelchair to transportation to home.
[2019-04-04] MEDS ORDERED: WARFARIN 2.5 MG TABLET. PO SCH (16:00)
== END 2019-04-03 11:10 | disposition home or self-care (01) | DRG 123 ==
LOC: 6 SOUTH 05:02
PROVIDERS: ADMIT Internal Medicine; ATTEND Internal Medicine
DX: H53.2 Diplopia (principal); Z68.41 Body mass index [BMI] 40.0-44.9, adult; I16.0 Hypertensive urgency; I48.91 Unspecified atrial fibrillation; E78.5 Hyperlipidemia, unspecified; N18.9 Chronic kidney disease, unspecified; I87.8 Other specified disorders of veins; E11.22 Type 2 diabetes mellitus with diabetic chronic kidney disease; N40.0 Benign prostatic hyperplasia without lower urinary tract symptoms; M10.9 Gout, unspecified; I12.9 Hypertensive chronic kidney disease with stage 1 through stage 4 chronic kidney disease, or unspecified chronic kidney disease; E66.01 Morbid (severe) obesity due to excess calories; Z79.82 Long term (current) use of aspirin; Z79.899 Other long term (current) drug therapy; Z79.01 Long term (current) use of anticoagulants; Z87.891 Personal history of nicotine dependence; Z86.73 Personal history of transient ischemic attack (TIA), and cerebral infarction without residual deficits; Z82.3 Family history of stroke
CPT/HCPCS: 36415; 70551; 80048; 80053; 80061; 80307; 82962; 84443; 85027; 85610; 93880; G0378